=== PATIENT | female | born 1995 | race American Indian/Alaskan Native ===

== ENCOUNTER 2021-01-24 05:27 | Inpatient (IN) | payer MEDICAID ==
[2021-01-24] MEDS ORDERED: BICITRA ORAL LIQD 30ML PO SCH (07:00)
[2021-01-24] MEDS ORDERED: FAMOTIDINE 20 MG/2 ML INJ IV SCH (07:00)
[2021-01-24] MEDS ORDERED: LACTATED RINGERS 1,000 ML IV SCH (07:00)
[2021-01-24] MEDS ORDERED: ceFAZolin/Water 2 GM/20 ML 2 GM/20 ML SYRINGE IV NR (07:00)
[2021-01-24] MEDS ORDERED: METOCLOPRAMIDE 10 MG/2 ML INJ IV SCH (07:00)
[2021-01-24] MEDS ORDERED: BUPIVACAINE/PF (0.5%) 5 MG/1 ML 30 ML VIAL INFILTRATI ONE (07:02)
[2021-01-24] MEDS ORDERED: KETOROLAC 30 MG/1 ML INJ ONE (07:02)
[2021-01-24] MEDS ORDERED: PHENYLEPHRINE 10 MG/1 ML INJ SDV ONE (07:02)
[2021-01-24] MEDS ORDERED: SODIUM CHLORIDE 0.9% 100 ML ONE (07:02)
[2021-01-24] MEDS ORDERED: dexAMETHasone 20 MG/5 ML VIAL ONE (07:02)
[2021-01-24] MEDS ORDERED: ONDANSETRON 4 MG/2 ML INJ ONE ×2 (07:02→07:04)
--- NOTE | 2021-01-24 07:16 | History and Physical Report ---
History of Present Illness Date of examination: 01/24/21 Date of admission: 01/24/21 05:27 Chief complaint: CSECTION FOR POSSIBLE SGA TWINS History of present illness: The patient is a 25-year-old -[place] female primigravida with twins with possible SGA ED the 7521. She is 37 weeks with twins with dichorionic diamniotic with 17% discordance twin A has IUGR she is HSV seropositive. She had approximately 8 visits at the office [employer]. So she is admitted at this time for primary section for delivery of her twins. Her blood type is A+ antibody screen is negative hematocrit is 39.2% initially Pap smear normal rubella immune VDRL was nonreactive initially and hepatitis B was negative HIV was negative varicella was immune HSV was positive vitamin D was 11.4 which was low platelet was 215,000. Her hemoglobin electrophoresis not present gonorrhea chlamydia tests were negative per sickle screen was negative trichomonas and cystic fibrosis were negative she had ultrasound on 08/16/2020 at 13.6 weeks twin A 14 weeks with twin B diabetic screen was 86 or VDRL repeat at 36 weeks was nonreactive and her HIV test at 36 weeks was negative. Group B strep test is not known Her family medical history is positive for cancer type unknown her past medical history is negative past surgical history is negative. Catamenia 12 x 28 x 5 this is her first social history patient is single. Patient has been seen in consultation with a PA because of a twin gestation and they recommend because of twins with IUGR x2 that she be delivered early. 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) Family/Genetic History: none Social history: single - Obstetrical History Expected Date of Delivery: 02/18/21 Actual Gestation: 36 Week(s) 3 Day(s) : 1 Para: 0 Hx # Term Pregnancies: 0 Number of Pregnancies: 0 Spontaneous Abortions: 0 Induced : 0 Number of Living Children: 0 Review of Systems All systems: negative - Vital Signs Vital signs: Vital Signs Pulse BP 117 H 130/102 01/24/21 06:53 01/24/21 06:53 Temp Pulse Resp BP Pulse Ox 117 H 130/102 01/24/21 06:53 01/24/21 06:53 - Physical Exam Breasts: Cardiovascular: Regular rate, Normal S1, Normal S2 Abdomen: Positive: normal appearance, soft, normal bowel sounds. Negative: distention, tenderness Genitourinary (Female): Positive: normal external genitalia Vulva: both: normal Vagina: Positive: normal moisture. Negative: discharge Cervix: Negative: lesion, discharge Uterus: Positive: normal size, enlarged, normal contour Adnexa: both: normal Anus/Rectum: Positive: normal perianal skin, heme negative. Negative: rectal mass, hemorrhoids Extremities: Positive: normal Deep Tendon Reflex Grade: Normal +2 - Obstetrical FHR: category 1 Uterine Contraction Monitor Mode: External Uterine Contraction Pattern: Absent Uterine Tone Measurement Phase: Resting Results All other labs normal. Assessment and Plan - Patient Problems (1) Twins, 1st trimester screening Current Visit: Yes Status: Acute (2) SGA (small for gestational age), , affecting care of mother, antepartum Current Visit: Yes Status: Acute Qualifiers: Fetus number: fetus 2 of multiple gestation Qualified Code(s): O36.5992 - Maternal care for other known or suspected poor growth, unspecified trimester, fetus 2
[2021-01-24 07:28] LABS: Basophils # (Auto) 0.1 K/mm3 (0.0-0.1); Basophils % (Auto) 0.7 % (0.0-1.8); Eosinophils # (Auto) 0.1 K/mm3 (0.0-0.4); Hematocrit 34.3 % (30.3-42.9); Hemoglobin 11.9 gm/dl (10.1-14.3); Lymphocytes # (Auto) 2.5 K/mm3 (1.2-5.4); Lymphocytes % (Auto) 27.2 % (13.4-35.0); Mean Corpuscular HGB Conc 35 % (30-34); Mean Corpuscular Volume 90 fl (79-97); Monocytes # (Auto) 0.9 K/mm3 (0.0-0.8); Monocytes % (Auto) 9.8 % (0.0-7.3); Platelet Count 175 K/mm3 (140-440); Red Blood Count 3.79 M/mm3 (3.65-5.03); Red Cell Distribution Width 13.2 % (13.2-15.2)
[2021-01-24] MEDS ORDERED: METHYLERGONOVINE MALEATE 0.2 MG/ML VIAL IM ONE (07:38)
[2021-01-24] MEDS ORDERED: CARBOPROST TROMETHAMINE 250 MCG/1 ML INJ IM ONE (07:38)
[2021-01-24] MEDS ORDERED: miSOPROStol 100 MCG TAB ONE (07:39)
[2021-01-24] MEDS ORDERED: OXYTOCIN DRIP 30 UNITS/500 ML BAG IV SCH ×2 (08:00→10:00)
[2021-01-24] MEDS ORDERED: ceFAZolin/STERILE WATER 2 GM/20 ML SYRINGE IV ONE (08:15)
--- NOTE | 2021-01-24 08:15 | Anesthesia Consultation ---
Anesthesia Consult and Med Hx Date of service: 01/24/21 - Airway Anesthetic Teeth Evaluation: Good ROM Head & Neck: Adequate Mental/Hyoid Distance: Adequate Mallampati Class: Class II Intubation Access Assessment: Probably Good - Pulmonary Exam CTA: Yes - Cardiac Exam Cardiac Exam: RRR - Pre-Operative Health Status ASA Pre-Surgery Classification: ASA2 Proposed Anesthetic Plan: Spinal - Pulmonary Hx Asthma: No COPD: No Hx Pneumonia: No - Cardiovascular System Hx Hypertension: No - Central Nervous System Hx Seizures: No Hx Psychiatric Problems: No - Endocrine Hx Renal Disease: No Hx End Stage Renal Disease: No Hx Hypothyroidism: No Hx Hyperthyroidism: No - Hematic Hx Anemia: No Hx Sickle Cell Disease: No - Other Systems Hx Alcohol Use: No
--- NOTE | 2021-01-24 08:16 | Anesthesia Day of Surgery ---
Anesthesia Day of Surgery - Day of Surgery Patient Examined: Yes Patient H&P Reviewed: Yes Patient is NPO: Yes
--- NOTE | 2021-01-24 08:17 | Progress Note ---
Spinal Anesthesia Block - Spinal Anesthesia Block Start Time: 08:03 Stop Time: 08:10 Performed by:: NIEVES JORDAN Procedure: Sitting, sterile chlorahexadine 0.5% prep/drape, 1% lidocaine skin local, 25G spinal needle + introducer at L3-4, + CSF, - Heme, [1.9 ml 0.5% bupivacaine + 10 mcg dexmedetomidine] injected, drape removed, patient positioned supine with left uterine displacement, and spinal level verified to be adequate prior to surgery. Helga SANDERSON
[2021-01-24] MEDS ORDERED: SODIUM CHLORIDE 0.9% IRR 1,500 ML BOTTLE IR ONE (08:33)
[2021-01-24] MEDS ORDERED: WATER FOR IRRIG STERILE 1,500 ML BOTTLE IR ONE (08:33)
[2021-01-24] MEDS ORDERED: OXYTOCIN 10 UNIT/1 ML INJ ONE (09:07)
[2021-01-24] MEDS ORDERED: WITCH HAZEL/ GLYCERIN PAD TP PRN (09:17)
[2021-01-24] MEDS ORDERED: ONDANSETRON 4 MG/2 ML INJ IV PRN (09:17)
[2021-01-24] MEDS ORDERED: NALOXONE 0.4 MG/1 ML INJ IV PRN (09:17)
[2021-01-24] MEDS ORDERED: ACETAMINOPHEN 325 MG TAB PO PRN (09:17)
[2021-01-24] MEDS ORDERED: LANOLIN/ZINC/DIMETHICONE (LANSINOH) 7 GM TP PRN (09:17)
--- NOTE | 2021-01-24 09:27 | Procedure Note ---
Date of procedure: 01/24/21 Pre-op diagnosis: 37 wk iup with twins, possible sga twins Post-op diagnosis: same Procedure: The patient was taken to the operating room and made ready for a primary section. She was given a spinal anesthetic adequate for the procedure and she then had a dual indwelling Niño catheter. Subsequently we created a prepped and draped the patient in usual fashion after timeout. We created a Pfannenstiel incision and into the abdominal cavity dorothea tomically vesicouterine uterine and was open with Metzenbaums. A low transverse incision made in lower uterine segment with the scalpel. Subsequently twin A was delivered a liveborn male infant. Nuchal cord x2 oropharynx and nasopharynx was suctioned cord was doubly subsequently and cut and baby passed off to the nurses from the nursery. Subsequently the twin B was not vertex and was most likely transverse and we rotated the baby to vertex presentation and broke the bag of water. In vertex was delivered oropharynx was suction cord doubly clamped and cut fetus passed off the table to the nurses in stable condition Baby A weight 4 pounds 15 ounces Apgars 8 and 9 after artificial rupture membranes at 836. Baby B was delivered at 8:36 weight 4 pounds 10 ounces with Apgars 8 and 9 after artificial rupture membranes at 8:37. The placenta is were delivered intact and looked like diamniotic dichorionic placentas. These were sent for pathology. The uterine cavity was cleaned debris membranes and tissue. The uterine incision was repaired in 2 layers first layer was into the myometrium using running locking #0 chromic superficial layer of the uterus was repaired with the using running 0 chromic. Vesicouterine peritoneum was repaired running 2-0 chromic on a GI needle. Tubes and ovaries were normal we suction out blood and tissue from the area behind the uterus and on the lateral side of the uterus this area was without any difficulties. Uterus was dropped back into the abdominal cavity all instruments were removed from abdominal cavity instrument count needle lap sponge count was correct anterior abdominal peritoneum was repaired running 2-0 chromic fascia repaired running #0 Vicryl in a locking subcutaneous is repaired running 2-0 chromic skin was repaired running subcuticular 4-0 Vicryl on a Parish needle and drained with Dermabond patient tolerated procedure well she was then returned to the recovery room in stable condition thank you Anesthesia: spinal Surgeon: SRIRAM GIRARD Estimated blood loss: other (550ccs) Pathology: list (placentas) Specimen disposition: to lab Condition: stable Disposition: PACU
[2021-01-24] MEDS: MORPHINE 4 MG/1 ML INJ IV PRN (18:27)
[2021-01-24 20:40] LABS: Hematocrit 32.8 % (30.3-42.9); Hemoglobin 11.1 gm/dl (10.1-14.3)
[2021-01-24] MEDS: FERROUS SULFATE 325 MG TAB PO SCH (21:19)
[2021-01-24] MEDS: oxyCODONE /ACETAMINOPHEN 5-325MG TAB PO PRN (21:37)
[2021-01-24] MEDS ORDERED: D5W/LACTATED RINGERS 1,000 ML IV SCH (22:00)
[2021-01-25] MEDS: IBUPROFEN 800 MG TAB PO PRN ×3 (00:17→23:28)
[2021-01-25] MEDS: oxyCODONE /ACETAMINOPHEN 5-325MG TAB PO PRN ×3 (03:54→18:16)
[2021-01-25] MEDS ORDERED: TETANUS,DIPH,PERTUSS(ACELL) VACCINE 0.5 ML SYRINGE IM ONE (06:19)
[2021-01-25] MEDS ORDERED: MEASLES, MUMPS & RUBELLA 12,500 UNIT/0.5 ML VACCINE SUB-Q ONE (09:19)
[2021-01-25] MEDS: PRENATAL VIT27-FE FUMARATE-FOLIC ACID VIT TAB PO SCH (09:49)
[2021-01-25] MEDS: FERROUS SULFATE 325 MG TAB PO SCH (09:49)
[2021-01-25] MEDS: MORPHINE 4 MG/1 ML INJ IV PRN (12:35)
--- NOTE | 2021-01-25 12:52 | Progress Note ---
Assessment and Plan A: day 1 S/P primary LTCS twins. P: Encouraged patient to ambulate. Continue routine /postop care. Subjective - Subjective Date of service: 01/25/21 Principal diagnosis: day 1 S/P LTCS twins Patient reports: appetite normal, voiding normally, pain well controlled, flatus, ambulating normally, no dizzy ambulation, no nauseated Tuttle: doing well Objective - Vital Signs Latest vital signs: Vital Signs Temp Pulse Resp BP BP Pulse Ox 01/25/21 07:55 98.3 F 66 18 112/66 99 01/25/21 04:48 98.6 F 74 16 115/78 01/25/21 03:54 20 01/25/21 00:17 20 01/24/21 21:37 18 01/24/21 19:59 98.0 F 76 18 114/75 97 01/24/21 16:23 98.2 F 73 18 126/71 100 Intake and Output 01/24/21 01/25/21 01/25/21 23:59 07:59 15:59 Intake Total 500 600 120 Output Total 550 1600 Balance -50 -1000 120 Intake: Oral 120 Intake, Free Water 500 600 Output: Urine 550 1600 Indwelling Catheter 550 Void 1600 Other: Total, Intake Amount 120 Total, Output Amount 550 600 # Voids Indwelling Catheter 800 Void 1 1 - Exam Cardiovascular: Present: Regular rate Lungs: Present: Clear to auscultation Abdomen: Present: normal appearance, soft, normal bowel sounds. Absent: distention, tenderness, guarding, rigidity Uterus: Present: normal, firm, fundal height below umbilicus. Absent: bogginess, tenderness Extremities: Present: normal. Absent: tenderness, edema Incision: Present: normal, dry, intact
--- NOTE | 2021-01-25 17:41 | Post Anesthesia Evaluation ---
- Post Anesthesia Evaluation Patient Participated: Yes Airway Patent: Yes Stable Respiratory Function: Yes Nausea/Vomiting: No Temp > 96.8F: Yes Pain Manageable: Yes Adequeate Hydration: Yes Anesthesia Complications: No Block Receding Appropriately: Yes
[2021-01-26] MEDS: oxyCODONE /ACETAMINOPHEN 5-325MG TAB PO PRN ×3 (05:28→21:46)
[2021-01-26] MEDS: FERROUS SULFATE 325 MG TAB PO SCH (10:00)
[2021-01-26] MEDS: PRENATAL VIT27-FE FUMARATE-FOLIC ACID VIT TAB PO SCH ×2 (10:01→12:54)
[2021-01-26] MEDS: MORPHINE 4 MG/1 ML INJ IV PRN (10:02)
--- NOTE | 2021-01-26 12:06 | Progress Note ---
Assessment and Plan - Patient Problems (1) S/P Current Visit: Yes Status: Acute Plan to address problem: Doing well s/p pTLCS for twins. Now POD2. Doing well with babies in the room. --Anticipate discharge in 24-48H Subjective - Subjective Date of service: 01/26/21 Principal diagnosis: day 2 S/P LTCS twins Interval history: Patient doing overall well. Babies doing well in the room. Bottle feeing. NO BM, but passing flatus. Still having some incisional pain, but improving. Patient reports: appetite normal, voiding normally, pain well controlled, flatus : doing well (x2) Objective - Vital Signs Latest vital signs: Vital Signs Temp Pulse Resp BP Pulse Ox 01/26/21 10:02 18 01/26/21 08:25 98.7 F 86 18 108/56 99 01/26/21 00:48 98.0 F 93 H 20 101/53 100 01/25/21 17:19 98.4 F 96 H 18 122/63 100 Intake and Output 01/25/21 01/26/21 01/26/21 23:59 07:59 15:59 Intake Total 1320 480 240 Balance 1320 480 240 Intake: Oral 720 480 240 Intake, Free Water 600 Other: Total, Intake Amount 240 240 240 # Voids Void 1 1 1 - Exam Abdomen: Present: normal appearance, normal bowel sounds Uterus: Present: fundal height below umbilicus Incision: Present: normal, intact
--- NOTE | 2021-01-26 12:07 | Discharge Summary ---
Providers - Providers Date of Admission: 01/24/21 05:27 Date of discharge: 01/27/21 Attending physician: GIA MARCELO MD Primary care physician: GIA MARCELO MD Hospitalization Reason for admission: section Procedure: section, primary low transverse Procedure details: s/p pTLCS for twin gestation at 36 weeks given IUGR of twin A Incision: normal, intact complications: none Discharge diagnosis: delivery baby: male (x2) Hospital course: admitted for pTLCS for twin gestation at 36 weeks given IUGR of twin A. Uncomplicated delivery and recovery and discharge in good condition on POD3 when patient meeting postoperative goals. Disposition: [id number] TO HOME OR SELFCARE - Discharge Diagnoses (1) S/P Status: Acute Plan - Discharge Medications Prescriptions: HYDROcodone/APAP 10-325 [[place] 10/325] 1 each PO Q6HR PRN 7 Days #25 tablet PRN Reason: Pain - Provider Discharge Summary Activity: routine, no sex for 6 weeks, no heavy lifting 4 weeks, no strenuous exercise Diet: routine Instructions: routine Additional instructions: [] Smoking cessation referral if applicable(refer to patient education folder for contact #) [] Refer to [facility] Booklet Call your doctor immediately for: * Fever > 100.5 * Heavy vaginal bleeding ( >1 pad per hour) * Severe persistent headache * Shortness of breath * Reddened, hot, painful area to leg or breast * Drainage or odor from incision. * Keep incision clean and dry at all times and follow doctor's instructions regarding bathing/showering - Follow up plan Follow up: SRIRAM GIRARD MD [Staff Physician] - 14 Days
[2021-01-26] MEDS: IBUPROFEN 800 MG TAB PO PRN (18:06)
[2021-01-27] MEDS: oxyCODONE /ACETAMINOPHEN 5-325MG TAB PO PRN (09:32)
[2021-01-27] MEDS: FERROUS SULFATE 325 MG TAB PO SCH (09:32)
[2021-01-27] MEDS: PRENATAL VIT27-FE FUMARATE-FOLIC ACID VIT TAB PO SCH (09:32)
[2021-01-27 09:51] VITALS: BP 126/72
== END 2021-01-27 12:05 | disposition home or self-care (01) | DRG 765 ==
LOC: APU 05:27 → OB 12:39
PROVIDERS: ADMIT Obstetrics & Gynecology; ATTEND Obstetrics & Gynecology
PROC: 10D00Z1 Extraction of Products of Conception, Low, Open Approach (ICD-10-PCS; principal; 2021-01-24)
DX: O30.043 Twin pregnancy, dichorionic/diamniotic, third trimester (principal); O60.14X2 Preterm labor third trimester with preterm delivery third trimester, fetus 2; O60.14X1 Preterm labor third trimester with preterm delivery third trimester, fetus 1; O36.5931 Maternal care for other known or suspected poor fetal growth, third trimester, fetus 1; Z20.822 Contact with and (suspected) exposure to COVID-19; O69.81X1 Labor and delivery complicated by cord around neck, without compression, fetus 1; Z37.2 Twins, both liveborn; Z3A.36 36 weeks gestation of pregnancy
CPT/HCPCS: 36415; 85014; 85018; 85025; 86850; 86900; 86901; 99211; G0378; G0463; J0690; J1100; J1885; J2270; J2370; J2405; J2590; J2765; J3490; U0003